=== PATIENT | female | born 1970 | race Caucasian/White ===

== ENCOUNTER 2017-08-02 13:34 | Outpatient (CLI) | payer OTHER ==
--- NOTE | 2017-08-04 12:17 | MMO ---
BILATERAL DIGITAL SCREENING MAMMOGRAMS: History: 46-year-old female presents for digital screening mammography. Comparison: 05-07-16, 03-22-13 This study is interpreted with the assistance of computer aided detection. FINDINGS: The breasts are heterogeneously dense bilaterally which can obscure small masses. There is a small fo cus of microcalcifications in the outer mid aspect of the left breast at approximately the 2-3 o'cloc k position which needs additional imaging evaluation. IMPRESSION: BIRADS category 0 - assessment incomplete. Needs additional imaging evaluation. Follow up mag charu chante spot views in CC, MLO, and mediolateral as well as non-mag mediolateral views are recommended fo r further evaluation. POS: [facility]
== END 2017-08-02 13:35 | disposition home or self-care (01) ==
LOC: SCSMAMMO 13:34
PROVIDERS: ATTEND Obstetrics & Gynecology
DX: Z12.31 Encounter for screening mammogram for malignant neoplasm of breast (principal)
CPT/HCPCS: 77067

== ENCOUNTER 2017-08-10 13:53 | Outpatient (CLI) | payer OTHER | END 2017-08-10 13:54 | disposition home or self-care (01) | LOC: BICMAMMO 13:53 | PROVIDERS: ATTEND Obstetrics & Gynecology | DX: R92.8 Other abnormal and inconclusive findings on diagnostic imaging of breast (principal); R92.1 Mammographic calcification found on diagnostic imaging of breast; Z80.3 Family history of malignant neoplasm of breast | CPT/HCPCS: G0279 ==